=== PATIENT | male | born 1945 | race Caucasian/White ===

== ENCOUNTER 2021-05-30 06:10 | Day surgery (SDC) | payer OTHER, MEDICARE ==
[2021-05-28 11:46] LABS: BASOPHILS % (AUTO) 0.4 % (0.0-5.0); EOSINOPHILS % (AUTO) 0.6 % (0.0-8.0); HEMATOCRIT 45.7 % (42-54); LYMPHOCYTES % (AUTO) 23.9 % (21.0-51.0); MEAN CORPUSCULAR HEMOGLOBIN 28.2 pg (27.0-33.0); MEAN CORPUSCULAR HGB CONC 32.2 g/dL (32.0-36.0); MEAN CORPUSCULAR VOLUME 87.7 fL (79-99); MONOCYTES % (AUTO) 9.1 % (3.0-13.0); NEUTROPHILS % (AUTO) 65.6 % (40.0-77.0); PLATELET COUNT (AUTO) 304 K/uL (130-400); RED BLOOD CELL COUNT(AUTO) 5.21 MIL/uL (4.50-6.20)
[2021-05-28 11:57] LABS: CREATININE 1.2 mg/dL (0.5-1.5); POTASSIUM 4.6 mmol/L (3.5-5.1)
[2021-05-29 08:20] VITALS: BP 164/82
[~2021-05-30] VITALS: Ht 175.3 cm; Wt 91.2 kg
[2021-05-30] VITALS (16 sets, daily range): BP systolic 99–155; BP diastolic 46–75
[~2021-05-30 06:10] MED LIST: 0.9% NACL 500ML IV.SOLN 500 ML IV SCH; AEC81 PO; AMLO-517 PO; LISI30TA4 PO; OLME40TA18 PO; ROPI2TAB29 PO; ROSU10TA28 PO; TAMS-1 PO; [UNRECOGNIZED DRUG - OTHER] PO
[2021-05-30] MEDS: CEFAZOLIN SODIUM 1 GM VIAL IVP SCH ×2 (06:50→08:30)
[2021-05-30] MEDS ORDERED: LACTATED RINGERS 1000ML 1,000 ML IV ONE (07:07)
[2021-05-30] MEDS ORDERED: LIDOCAINE HCL 1% 20 ML VIAL MISC ONE (08:00)
[2021-05-30] MEDS ORDERED: DEXAMETHASONE SOD PHOSPHATE 10MG/ML 1ML VIAL ONE (08:11)
[2021-05-30] MEDS ORDERED: SUCCINYLCHOLINE CHLORIDE 20 MG/ML 10 ML VIAL ONE (08:11)
[2021-05-30] MEDS ORDERED: LIDOCAINE PF 100MG/5ML (2%) SYRINGE 5ML ONE (08:11)
[2021-05-30] MEDS ORDERED: NEOSTIGMINE 5MG/5ML SYR IV ONE (08:12)
[2021-05-30] MEDS ORDERED: FENTANYL CITRATE PF 50 MCG/1 ML 2ML VIAL ONE (08:12)
[2021-05-30] MEDS ORDERED: GLYCOPYRROLATE 1 MG/5 ML SYRINGE ONE (08:12)
[2021-05-30] MEDS ORDERED: ROCURONIUM 10MG/1ML SYR 10 MG/ML ML ONE (08:12)
[2021-05-30] MEDS ORDERED: PROPOFOL 10 MG/ML 20ML VIAL IV ONE (08:12)
[2021-05-30] MEDS ORDERED: BUPIVACAINE/PF 0.25% 30ML VIAL IJ ONE (08:17)
== END 2021-05-30 11:10 | disposition home or self-care (01) ==
LOC: DAH 06:10
PROVIDERS: ATTEND Student in an Organized Health Care Education/Training Program
DX: D17.0 Benign lipomatous neoplasm of skin and subcutaneous tissue of head, face and neck (principal); I10 Essential (primary) hypertension; K21.9 Gastro-esophageal reflux disease without esophagitis; Z79.82 Long term (current) use of aspirin; Z79.899 Other long term (current) drug therapy; Z98.890 Other specified postprocedural states; Z82.49 Family history of ischemic heart disease and other diseases of the circulatory system
CPT/HCPCS: 21556; 36415; 80048; 85025; 87635; 93005; A4213; A4215; A4216; A4221; A4222; A4223 ×2; A4663; A4930; A6260; C9803; G0168; J0330; J0690; J1100; J2001; J2704; J2710; J3010; J3490 ×2; J7120

== ENCOUNTER 2024-04-08 18:33 | Emergency (ER) | payer OTHER, MEDICARE ==
[~2024-04-08] VITALS: Ht 175.3 cm; Wt 86.2 kg
[~2024-04-08 18:33] MED LIST changes: -0.9% NACL 500ML IV.SOLN 500 ML IV SCH; -ROSU10TA28 PO; +ROSU10TA72 PO
--- NOTE | 2024-04-08 18:50 | ERN ---
ED Note History of Present Illness Stated Complaint: FALL, PAIN TO HEAD Chief Complaint: Mechanical Fall Time Seen by MD: 18:35 Dictation: PATIENT IS AN 79-YEAR-OLD MALE HERE WITH HIS DAUGHTER WITH COMPLAINTS OF A STATUS POST SLIP FALL1 HOUR PRIOR TO ARRIVAL. HE WAS CLEANING HIS TILE DECK IN RUBBER SOLED SHOES WHEN HE SLIPPED AND IT FELL BACKWARDS HIT THE BACK OF HIS HEAD. HEMATOMA NOTED TO THE BACK OF HIS HEAD. PER PATIENT THERE WAS NO LOC NO NAUSEA NO VOMITING. DAUGHTER STATES HE WAS ACTING UNUSUAL FOR THE 1ST MINUTE OR TWO AFTER IT HAPPENED, NOW HE IS NORMAL. NO BLOOD THINNERS NO NECK PAIN NO MIDLINE SPINE PAIN. DR. TANYA AGUIRRE IN TRIAGE ROOM AND EXAMINED PATIENT. TRAUMA ALERT WE WILL BE ACTIVATED. PATIENT ALSO COMPLAINING OF POSTERIOR RIGHT ELBOW PAIN WITH FULL RANGE OF MOTION NOTED. MILD BURSA SWELLING NOTED Allergies: Coded Allergies: No Known Drug Allergies (Verified Allergy, Unknown, 05/28/21) Home Meds Active Scripts Cyclobenzaprine HCl (Cyclobenzaprine HCl) 10 Mg Tablet, 1 TAB PO TID for muscle spasms for 10 Days, #30 TAB 0 Refills Prov:LETI MAGANA NP 04/08/24 Ibuprofen (Ibuprofen 800 mg Tab) 800 Mg Tab, 800 MG PO Q8H PRN for fever or pain, #30 TAB 0 Refills Prov:LETI MAGANA CNC LATHE MACHINIST 04/08/24 Reported Medications Aspirin (ASPIRIN 81 MG ECTAB) 81 Mg Ectab, 81 MG PO DAILY, TAB.EC 05/29/21 Amlodipine Bes/Olmesartan Med (Amlodipine-Olmesartan 10-40 mg) 1 Each Tablet, 1 EACH PO DAILY, TAB 05/29/21 Rosuvastatin Calcium (Rosuvastatin Calcium) 10 Mg Tablet, 10 MG PO HS, TAB 05/29/21 Tamsulosin HCl (Flomax) 0.4 Mg Cap.er.24h, 0.8 MG PO HS, CAPSULE. 05/29/21 [Presiq] No Conflict Check, 50 MG PO HS 05/29/21 Ropinirole HCl (Ropinirole HCl) 2 Mg Tab.er.24h, 2 MG PO HS, TAB 05/29/21 Olmesartan Medoxomil (Olmesartan Medoxomil) 40 Mg Tablet, 40 MG PO HS, TAB 05/29/21 Lisinopril (Lisinopril) 30 Mg Tablet, 30 MG PO HS, TAB 05/29/21 Past Medical History RN Note Reviewed/Agreed w/PFSH: Yes Review of System Dictation CONSTITUTIONAL: NEGATIVE EXCEPT FOR HPI HEAD/FACE: NEGATIVE EXCEPT FOR HPI OCCIPITAL CONTUSION EENT: NEGATIVE EXCEPT FOR HPI RESPIRATORY: NEGATIVE EXCEPT FOR HPI GASTROINTESTINAL/ABDOMINAL: NEGATIVE EXCEPT FOR HPI GENITOURINARY: NEGATIVE EXCEPT FOR HPI MUSCULOSKELETAL: NEGATIVE EXCEPT FOR HPI RIGHT ELBOW PAIN VERSUS SWELLING INTEGUMENTARY: NEGATIVE EXCEPT FOR HPI NEUROLOGICAL/PSYCH: NEGATIVE EXCEPT FOR HPI HEMATOLOGIC/LYMPHATIC: NEGATIVE EXCEPT FOR HPI ALL SYSTEMS NEGATIVE, EXCEPT NOTED ABOVE. 13 POINT REVIEW OF SYSTEMS ASSESSED AND ALL NEGATIVE EXCEPT FOR ABOVE. Initial Vital Sign VS Vital Signs Date Time Temp Pulse Resp B/P (MAP) Pulse Ox O2 Delivery O2 Flow Rate FiO2 04/08/24 18:47 98.1 70 18 162/87 100 Room Air 04/08/24 19:10 0 21 Physical Exam Dictation VITAL SIGNS REVIEWED GENERAL APPEARANCE: ALERT, ORIENTED X 3, MILD ACUTE DISTRESS, WELL DEVELOPED, NOURISHED. HEAD AND FACE: OCCIPITAL HEMATOMA. NO HOLDER OR RACCOON SIGN EYES: PERRL, PINK CONJUNCTIVAS, EYELID NO TRAUMA, ANTERIOR CHAMBER WITH ARCUS SENILIS. EARS: PINNAS INTACT AND NO SIGNS OF TRAUMA OR ERYTHEMA EAR CANALS CLEAR AND NO DISCHARGE TM NO ERYTHEMA NO HEMOTYMPANUM NOSE: NO DISCHARGE, NO BLEEDING. OROPHARYNX: MOUTH NORMAL, TONGUE PINK, PHARYNX CLEAR,NO ERYTHEMA, TONSILS NO EXUDATES, NO ABSCESSES NOTED, MUCOUS MEMBRANE MOIST NECK: SUPPLE, NON-TENDER, NO THYROMEGALY, NO MASSES, NO JVD, NO BRUITS BREAST:DEFERRED CHEST:NO TENDERNESS, NO CREPITUS, NO PARADOXICAL MOVEMENT, NO RETRACTIONS LUNGS:CLEAR, WELL-VENTILATED, SYMMETRIC, NO RALES, NO WHEEZING, NO RHONCHI, NO STRIDOR, GOOD BREATH SOUNDS BILATERALLY HEART: REGULAR RATE, REGULAR RHYTHM, NO MURMUR, NO GALLOPS VASCULAR: NO PERIPHERAL EDEMA, ABDOMEN: SOFT, POSITIVE BOWEL SOUNDS, NONDISTENDED, NO GUARDING, NONTENDER, NO REBOUND, NO MASSES NO HEPATOMEGALY, NO SPLENOMEGALY, NO MCKEE'S SIGN, NO HERNIAS. RECTAL: DEFERRED GENITAL: DEFERRED NEUROLOGICAL: NORMAL SPEECH, MOTOR FUNCTION INTACT, SENSORY FUNCTION INTACT NEUROLOGICALLY INTACT PER DAUGHTER MUSCULOSKELETAL: NECK NONTENDER, FULL RANGE OF MOTION, BACK NONTENDER, FULL RANGE OF MOTION, EXTREMITIES: MILD TENDERNESS WITH FULL RANGE OF MOTION TO RIGHT ELBOW. SKIN: COLOR PINK, DRY, NO TURGOR, NO RASH, NO LACERATIONS, NO ABRASIONS, NO CONTUSIONS. LYMPHATIC: DEFERRED Results (Laboratory/Radiology) Laboratory/Radiology HISTORY: Trauma COMPARISON: None TECHNIQUE: Multiple sequential axial images of the head were obtained from the base of the skull through vertex. Patient was not given contrast through intravenous route. FINDINGS: The ventricles and extraventricular CSF spaces are dilated consistent with cerebral atrophy. Nonspecific white matter changes seen. Right posterior scalp soft tissue swelling is seen. There is no midline shift, mass effect or herniation. No acute intracranial bleed is seen. Visualized portion of the paranasal sinuses are grossly within normal limits. IMPRESSION: 1. No acute intracranial bleed is seen. 2. Atrophy with white matter changes. THORACIC SPINE W/O CONTRAST HISTORY: Trauma COMPARISON: None TECHNIQUE: Multiple sequential axial images of the thoracic spine were obtained including post processing sagittal and coronal reconstruction images. Patient was not given contrast through intravenous route. FINDINGS: Bony osteopenia is seen. There are degenerative changes with spondylosis. Mild dextroscoliosis is seen. There is no loss of vertebral height. Evaluation for disc and cord pathology is limited with CT study. No evidence of fracture or dislocation is seen. IMPRESSION: 1. No fracture is seen. DJD. CT LUMBAR SPINE W/O CONTRAST HISTORY: Trauma COMPARISON: None TECHNIQUE: Multiple sequential axial images of the lumbar spine were obtained including post processing sagittal and coronal reconstruction images. Patient was not given contrast through intravenous route. FINDINGS: There are degenerative changes with lumbar spine spondylosis. Disc space narrowing is seen at the L5-S1 level. There is no loss of vertebral height. Evaluation for disc and cord pathology is limited with CT study. No evidence of fracture or dislocation is seen. IMPRESSION: 1. No fracture is seen. DJD. There is atherosclerosis. Central canal narrowing is seen at L3-4, L4-5 and L5-S1 levels. CT CERVICAL SPINE W/O CONTRAST HISTORY: Trauma COMPARISON: None TECHNIQUE: Multiple sequential axial images of the cervical spine were obtained including post processing sagittal and coronal reconstruction images. Patient was not given contrast through intravenous route. FINDINGS: There are degenerative changes with cervical spine spondylosis. Disc space narrowings are seen at C3-4, C4-5 and C5-6 levels. There is straightening of normal lordotic cervical curvature which may be related to muscle spasm or positioning. There is no loss of vertebral height. Evaluation for disc and cord pathology is limited with CT study. No evidence of fracture or dislocation is seen. IMPRESSION: 1. No fracture is seen. DJD. RIGHT ELBOW X-RAY NEGATIVE NOTE: THE IMAGING ON THIS PATIENT WAS ORDERED BY EXCEPT FOR CT OF THE HEAD AND ELBOW. Labs Reviewed?: Yes ED Course ED Course Orders Procedure Category Date Status Time Apply Ice Pack To: CPOE 04/08/24 Transmitted (Er) 18:44 Ct Head/Brain W/O CT 04/08/24 Resulted Contrast 18:44 Acetaminophen 500mg PHA 04/08/24 Complete Tab (Tylenol 500mg T 19:00 Elbow Comp 3+Vws Rt RAD 04/08/24 Resulted 18:47 Ct Cervical Spine W/O CT 04/08/24 Resulted Contrast 18:55 Ct Thoracic Spine W/O CT 04/08/24 Resulted Contrast 19:01 Ct Lumbar Spine W/O CT 04/08/24 Resulted Contrast 19:01 Orphenadrine Citrate PHA 04/08/24 Complete (Norflex) 20:00 Morphine 4mg Syg PHA 04/08/24 Complete (Morphine 4mg Syg) 21:00 Ondansetron 4mg Inj PHA 04/08/24 Complete (Zofran 4mg Inj) 21:00 Dexamethasone 4mg/Ml PHA 04/08/24 Complete 1ml Vial (Dexametha 21:00 Current Medications Medications (Trade) Dose Ordered Sig/Angus Route PRN Reason Start Time Stop Time Status Last Admin Dose Admin Acetaminophen (TYLenol 500MG TAB) 1,000 mg ONCE ONCE PO 04/08/24 19:00 04/08/24 19:01 DC 04/08/24 20:46 Dexamethasone Sodium Phosphate (dexaMETHasone 4MG/ML 1ML VIAL) 8 mg ONCE ONCE IVP 04/08/24 21:00 04/08/24 21:04 DC 04/08/24 21:21 Morphine Sulfate (morPHINE 4MG SYG) 4 mg ONCE ONCE IVP 04/08/24 21:00 04/08/24 21:04 DC 04/08/24 21:21 Ondansetron HCl (zoFRAN 4MG INJ) 4 mg ONCE ONCE IVP 04/08/24 21:00 04/08/24 21:04 DC 04/08/24 21:21 Orphenadrine Citrate (Norflex) 60 mg ONCE ONCE IM 04/08/24 20:00 04/08/24 20:01 DC 04/08/24 20:04 Vital Signs Date Time Temp Pulse Resp B/P (MAP) Pulse Ox O2 Delivery O2 Flow Rate FiO2 04/08/24 21:48 98.1 73 16 152/69 97 Room Air* 0 04/08/24 19:10 98.1 71 16 153/76 98 Room Air* 0 04/08/24 18:47 98.1 70 18 162/87 100 Room Air 2049 PATIENT REMAINS NEUROLOGICALLY INTACT, SPEECH IS CLEAR AND MOVING ALL EXTREMITIES 5/5 BILATERALLY. HE IS BASELINE PER HIS DAUGHTER. PATIENT IS CONTINUING TO COMPLAIN OF LUMBAR PAIN AND SPASM. HE HAD BEEN GIVEN NOR FLEX AT 20:00 HOURS HE HAS A AN IV I WE WILL GIVE A LOW DOSE OF MORPHINE, ZOFRAN, SOLU- MEDROL. NEUROVASCULAR CMS INTACT TO ALL EXTREMITIES POST REMOVAL OF CERVICAL COLLAR. Medical Decision Making MDM MEDICAL DISCHARGE MAKING BASED ON CT SCANS OF CT HEAD CERVICAL SPINE, THORACIC SPINE, LUMBAR SPINE NEGATIVE EXCEPT FOR FOR FORAMINAL STENOSIS LUMBAR SECONDARY TO DEGENERATIVE JOINT DISEASE RIGHT ELBOW NEGATIVE DISCHARGED HOME WITH CLOSED HEAD INJURY INSTRUCTIONS DX & DISP Disposition: Discharge Departure Impression: Primary Impression: Scalp hematoma Additional Impressions: Contusion of right elbow, initial encounter, Neck contusion, Contusion of back, Fall, Closed head injury Condition: Stable Scripts Cyclobenzaprine HCl (Cyclobenzaprine HCl) 10 Mg Tablet 1 TAB PO TID for muscle spasms for 10 Days, #30 TAB 0 Refills Prov: LETI MAGANA CNC LATHE MACHINIST 04/08/24 Ibuprofen (Ibuprofen 800 mg Tab) 800 Mg Tab 800 MG PO Q8H PRN for fever or pain, #30 TAB 0 Refills Prov: LETI MAGANA CNC LATHE MACHINIST 04/08/24 Additional Instructions: FOLLOW-UP WITH PRIMARY CARE PROVIDER IN 1 TO 2 DAYS. TAKE MEDICATIONS DIRECTED HERE IN THE EMERGENCY ROOM. OKAY TO CONTINUE HOME MEDICATIONS UNLESS OTHERWISE DISCUSSED DURING YOUR VISIT IN THE EMERGENCY ROOM TODAY. RETURN TO YOUR NEAREST EMERGENCY ROOM IF SYMPTOMS WORSEN OR IF THERE IS NO IMPROVEMENT. CALL 911 IF YOU NEED IMMEDIATE ASSISTANCE. TAKE TYLENOL OR MOTRIN [id number] NEEDED AND IF NO CONTRAINDICATIONS ARE PRESENT. INCREASE ORAL HYDRATION. A WOUND CULTURE OR URINE CULTURE WAS ORDERED HERE IN THE EMERGENCY ROOM DEPARTMENT PLEASE FOLLOW-UP WITH PRIMARY CARE PROVIDER AND ADVISE THEM TO GET REPEAT PORTS FROM OUR FACILITY. IF YOU HAD ANY JUNITO WRAP/SPLINTS THAT WERE APPLIED HERE, PLEASE DO NOT REMOVE THEM UNTIL YOU SEE YOUR PRIMARY CARE OR SPECIALTY. COOL COMPRESSES TO PAIN THREE TO 4 TIMES A DAY. TAKE IBUPROFEN OR TYLENOL [id number] NEEDED FOR PAIN. FOLLOW UP WITH YOUR PRIMARY CARE DOCTOR IN 1-2 DAYS. RETURN TO THE EMERGENCY ROOM IMMEDIATELY IF ANY CHANGES FROM HEAD INJURY INFORMATION SHEET. TAKE IBUPROFEN AND FLEXERIL EVERY8 HOURS WITH FOOD FOR THE NEXT THREE DAYS. Referrals: JENNY MURILLO MD (PCP) Time of Disposition: 20:49 I have reviewed the case, and I agree with, Diagnosis and Plan I performed a substantive portion of the visit. I have reviewed and personally made and approve the management plan that is documented in the notes by myself with SUZE/resident. I acknowledged full responsibility for the patient's management plan. LETI MAGANA NP Apr 08, 2024 18:50 TANYA AGUIRRE DO Apr 09, 2024 07:00
--- NOTE | 2024-04-08 19:14 | NUR ---
ASSUMED PATIENT CARE AT THIS TIME.
--- NOTE | 2024-04-08 19:18 | NUR ---
PT TO CT AT THIS TIME ACCOMPANIED BY PRIMARY RN AND ON CARDIAC ON MONITOR.
--- NOTE | 2024-04-08 19:36 | NUR ---
PT BACK FROM CT AT THIS TIME.
--- NOTE | 2024-04-08 19:46 | HMCIMG ---
CT HEAD/BRAIN W/O CONTRAST HISTORY: Trauma COMPARISON: None TECHNIQUE: Multiple sequential axial images of the head were obtained from the base of the skull through vertex. Patient was not given contrast through intravenous route. FINDINGS: The ventricles and extraventricular CSF spaces are dilated consistent with cerebral atrophy. Nonspecific white matter changes seen. Right posterior scalp soft tissue swelling is seen. There is no midline shift, mass effect or herniation. No acute intracranial bleed is seen. Visualized portion of the paranasal sinuses are grossly within normal limits. IMPRESSION: 1. No acute intracranial bleed is seen. 2. Atrophy with white matter changes. CT was performed with one or more following dose reduction techniques: automated exposure control, adjustment of the mA and kv according to patient's size, or use of a iterative reconstruction technique.
--- NOTE | 2024-04-08 19:48 | HMCIMG ---
CT CERVICAL SPINE W/O CONTRAST HISTORY: Trauma COMPARISON: None TECHNIQUE: Multiple sequential axial images of the cervical spine were obtained including post processing sagittal and coronal reconstruction images. Patient was not given contrast through intravenous route. FINDINGS: There are degenerative changes with cervical spine spondylosis. Disc space narrowings are seen at C3-4, C4-5 and C5-6 levels. There is straightening of normal lordotic cervical curvature which may be related to muscle spasm or positioning. There is no loss of vertebral height. Evaluation for disc and cord pathology is limited with CT study. No evidence of fracture or dislocation is seen. IMPRESSION: 1. No fracture is seen. DJD. CT was performed with one or more following dose reduction techniques: automated exposure control, adjustment of the mA and kv according to patient's size, or use of a iterative reconstruction technique.
--- NOTE | 2024-04-08 19:54 | HMCIMG ---
CT THORACIC SPINE W/O CONTRAST HISTORY: Trauma COMPARISON: None TECHNIQUE: Multiple sequential axial images of the thoracic spine were obtained including post processing sagittal and coronal reconstruction images. Patient was not given contrast through intravenous route. FINDINGS: Bony osteopenia is seen. There are degenerative changes with spondylosis. Mild dextroscoliosis is seen. There is no loss of vertebral height. Evaluation for disc and cord pathology is limited with CT study. No evidence of fracture or dislocation is seen. IMPRESSION: 1. No fracture is seen. DJD. CT was performed with one or more following dose reduction techniques: automated exposure control, adjustment of the mA and kv according to patient's size, or use of a iterative reconstruction technique.
--- NOTE | 2024-04-08 19:54 | HMCIMG ---
CT LUMBAR SPINE W/O CONTRAST HISTORY: Trauma COMPARISON: None TECHNIQUE: Multiple sequential axial images of the lumbar spine were obtained including post processing sagittal and coronal reconstruction images. Patient was not given contrast through intravenous route. FINDINGS: There are degenerative changes with lumbar spine spondylosis. Disc space narrowing is seen at the L5-S1 level. There is no loss of vertebral height. Evaluation for disc and cord pathology is limited with CT study. No evidence of fracture or dislocation is seen. IMPRESSION: 1. No fracture is seen. DJD. There is atherosclerosis. Central canal narrowing is seen at L3-4, L4-5 and L5-S1 levels. CT was performed with one or more following dose reduction techniques: automated exposure control, adjustment of the mA and kv according to patient's size, or use of a iterative reconstruction technique.
[2024-04-08] MEDS: ORPHENADRINE 60MG/2ML IM ONE (20:04)
[2024-04-08] MEDS: acetaMINOPHEN 500 MG TABLET PO ONE (20:46)
--- NOTE | 2024-04-08 20:54 | HMCIMG ---
ELBOW COMP 3+VWS RT HISTORY: Right elbow pain COMPARISON: None TECHNIQUE: 3 images of right elbow were obtained. FINDINGS: There is no acute displaced fracture or dislocation. There is soft tissue swelling. There is calcification at the insertion site of triceps tendon consistent with enthesopathy. Degenerative changes are seen. IMPRESSION: 1. Findings as described above.
--- NOTE | 2024-04-08 20:56 | NUR ---
C-COLLAR REMOVED AT THIS TIME BY SIMON HAT FORMING MACHINE FEEDER.
[2024-04-08] MEDS ORDERED: CYCL-309 PO (21:03)
[2024-04-08] MEDS ORDERED: IBUP-2077 PO (21:03)
[2024-04-08] MEDS: morPHINE 4 MG SYG IVP ONE (21:21)
[2024-04-08] MEDS: ondanSETRON 4MG INJ IVP ONE (21:21)
[2024-04-08] MEDS: dexaMETHasone SOD PHOSPHATE 4 MG/ML 1ML VIAL IVP ONE (21:21)
[2024-04-08 21:48] VITALS: BP 152/69; PULSE 73; RESP 16; TEMP 98; O2SAT 97
== END 2024-04-08 21:54 | disposition home or self-care (01) ==
LOC: EDH 18:33
DX: S00.03XA Contusion of scalp, initial encounter (principal); S50.01XA Contusion of right elbow, initial encounter; S10.93XA Contusion of unspecified part of neck, initial encounter; S20.229A Contusion of unspecified back wall of thorax, initial encounter; Z79.82 Long term (current) use of aspirin; Z79.899 Other long term (current) drug therapy; W01.0XXA Fall on same level from slipping, tripping and stumbling without subsequent striking against object, initial encounter; Y93.89 Activity, other specified; Y92.89 Other specified places as the place of occurrence of the external cause; Y99.8 Other external cause status
CPT/HCPCS: 99285; 70450; 96374; 96375; 73080; 72125; 72131; 72128; 96372; J1100; J2405; J2270; J2360